=== PATIENT | male | born 1935 | race Caucasian/White ===

== ENCOUNTER 2017-03-15 15:35 | Emergency (ER) | payer MEDICARE, BC, OTHER | END 2017-03-15 17:05 | disposition home or self-care (01) | LOC: M ED 15:35 | DX: J06.9 Acute upper respiratory infection, unspecified (principal); E78.00 Pure hypercholesterolemia, unspecified | CPT/HCPCS: 71020 ==

== ENCOUNTER 2017-09-27 10:17 | Emergency (ER) | payer MEDICARE, BC, OTHER | END 2017-09-27 11:20 | disposition home or self-care (01) | LOC: M ED 10:17 | DX: S01.511A Laceration without foreign body of lip, initial encounter (principal); S73.101A Unspecified sprain of right hip, initial encounter; S70.01XA Contusion of right hip, initial encounter; T14.8XXA Other injury of unspecified body region, initial encounter; W01.0XXA Fall on same level from slipping, tripping and stumbling without subsequent striking against object, initial encounter; Y92.410 Unspecified street and highway as the place of occurrence of the external cause; Y93.02 Activity, running; E78.00 Pure hypercholesterolemia, unspecified; Z87.891 Personal history of nicotine dependence; Z79.899 Other long term (current) drug therapy | CPT/HCPCS: 73552 ==

== ENCOUNTER → 2019-11-01 | Outpatient (CLI) | payer MEDICARE, OTHER ==
[~2019-11-01] MED LIST: ATOR1TAB19 PO; TESS100C PO; ZITHTAB PO
== END ==
LOC: M LABSMTC 10:35
PROVIDERS: ATTEND Pediatrics
DX: Z20.828 Contact with and (suspected) exposure to other viral communicable diseases (principal)
CPT/HCPCS: C9803; U0003

== ENCOUNTER → 2021-07-01 | Outpatient (REF) | payer MEDICARE, OTHER | LOC: M SFHCDERM 10:36 | PROVIDERS: ATTEND Dermatology | DX: L90.5 Scar conditions and fibrosis of skin (principal); L57.8 Other skin changes due to chronic exposure to nonionizing radiation ==